=== PATIENT | female | born 1970 | race Caucasian/White ===

== ENCOUNTER 2024-04-12 10:48 | Observation (INO) ==
[~2024-04-12 10:48] MED LIST: Naloxone 0.4 mg VIAL 0.4 mg/ml 1 ml VIAL IV PRN; Ondansetron 4 mg VIAL 2 MG/ML 2 ml VIAL IV PRN
[2024-04-12] MEDS ORDERED: Propofol 10 MG/ML 20 ML BTL ONE ×2 (11:37→14:51)
[2024-04-12] MEDS ORDERED: fentaNYL 100 mcg/2 ml 50 MCG/ML VIAL ONE ×3 (11:37→17:50)
[2024-04-12] MEDS ORDERED: Lidocaine 2% PF 5 ML VIAL ONE (11:37)
[2024-04-12] MEDS ORDERED: Dexamethasone IV 4 MG/ML VIAL 1 ml VIAL ONE ×2 (11:37→12:53)
[2024-04-12] MEDS ORDERED: Ondansetron 4 mg VIAL 2 MG/ML 2 ml VIAL ONE (11:37)
[2024-04-12] MEDS ORDERED: Midazolam 2 mg/2 ml VIAL 1 mg/ml 2 ml VIAL (2 mg) ONE ×2 (11:37→12:53)
[2024-04-12] MEDS ORDERED: Famotidine IV 10 MG/ML 2 ml VIAL (20 mg) ONE (11:50)
[2024-04-12] MEDS: Famotidine IV 10 MG/ML 2 ml VIAL (20 mg) IV ONE (12:14)
[2024-04-12] MEDS ORDERED: Tranexamic Acid 1 GM/100ML BAG 2,000 MG/200 ML BAG IV ONE (12:18)
[2024-04-12] MEDS ORDERED: ceFAZolin 2 GM in NS PREMIX 2 GM/100 ML BAG IVPB ONE (12:18)
[2024-04-12] MEDS ORDERED: ROPIVACAINE 5 MG/ML 30 ML BTL (0.5%) ONE ×2 (13:12→13:28)
[2024-04-12] MEDS ORDERED: Ondansetron 4 mg VIAL 2 MG/ML 2 ml VIAL IV PRN (13:55)
[2024-04-12] MEDS ORDERED: Magnesium Hydroxide LIQ 30 ML UDC PO PRN (13:55)
[2024-04-12] MEDS ORDERED: Calcium Carb (TUMS) 500 mg CHEW TAB PO PRN (13:55)
[2024-04-12] MEDS ORDERED: Morphine 2 MG/ML SYRINGE IV PRN (13:55)
[2024-04-12] MEDS ORDERED: Ondansetron ODT 4 mg TAB 4 MG TAB PO PRN (13:55)
[2024-04-12] MEDS ORDERED: Lactulose 30 ml UDC PO PRN (13:55)
[2024-04-12] MEDS ORDERED: ceFAZolin 2 GM in NS PREMIX 2 GM/100 ML BAG IVPB SCH (14:00)
[2024-04-12 14:14] LABS: Rapid COVID-19 Molecular Undetected (Undetected)
[2024-04-12] MEDS ORDERED: HYDROmorphone 0.5 MG/0.5 ML SYRINGE ONE (14:27)
[2024-04-12] MEDS ORDERED: Sterile Water for Inj 10 ML ONE (14:32)
[2024-04-12] MEDS: fentaNYL 100 mcg/2 ml 50 MCG/ML VIAL IV PRN (17:52)
[2024-04-12] MEDS: Buffered Lidocaine 1% SYRIN 1 ml INTRADERM ONE (18:59)
[2024-04-12] MEDS: Lactated Ringers 1000 ml BAG 1,000 ML IV SCH ×2 (18:59)
[2024-04-12] MEDS: Magnesium Hydroxide LIQ 30 ML UDC PO SCH (20:07)
[2024-04-12] MEDS: ceFAZolin 2 GM PREMIX 2 GM/50 ML BAG IV SCH (23:21)
[2024-04-13 06:06] LABS: Hematocrit 30.5 % (35-45); Hemoglobin 10.2 g/dL (11.5-14.3); Mean Platelet Volume 8.1 fL (7.5-11.2); Platelet Count 233 10^3/uL (150-450)
[2024-04-13 06:51] LABS: Calcium 9.2 mg/dL (8.6-10.3); Creatinine, Serum 0.67 mg/dL (0.51-0.95); Potassium 4.4 mmol/L (3.5-5.0); eGFR CKD-EPI 102.5 (>60)
[2024-04-13] MEDS: Vitamin THERAPEUTIC TAB PO SCH (09:01)
[2024-04-13 14:54] VITALS: BP 105/55
== END 2024-04-13 15:46 | disposition home or self-care (01) ==
LOC: SSU 10:48 → OR 10:48 → EDSTATUS 13:30
PROVIDERS: ADMIT Orthopaedic Surgery Adult Reconstructive Orthopaedic Surgery; ATTEND Orthopaedic Surgery Adult Reconstructive Orthopaedic Surgery